=== PATIENT | female | born 1970 | race Two or more races ===

== ENCOUNTER 2021-06-27 08:16 | Emergency (ER) | payer SELFPAY ==
[~2021-06-27] VITALS: Ht 167.6 cm; Wt 104.3 kg
[2021-06-27 09:17] VITALS: BP 138/61
[2021-06-27 10:13] LABS: Urine Bacteria NONE SEEN /hpf (None Seen); Urine Blood Negative /uL (Negative); Urine Mucus FEW (None Seen); Urine Specific Gravity 1.018 (1.001-1.035); Urine WBC 26 /hpf (0 - 5)
[2021-06-27 10:15] LABS: Eosinophils # (auto) 0.3 10 ^3/uL (0-0.8); Monocytes # (auto) 0.5 10 ^3/uL (0-1.3); Red Blood Cells 4.65 10^6/uL (4.0-5.20)
[2021-06-27 10:18] LABS: Basophils # (auto) 0 10 ^3/uL (0-0.2); Basophils % (auto) 0.6 % (0.0-2.0); Eosinophils % (auto) 4.2 % (0.0-7.0); Hematocrit 37.7 % (36.0-46.0); Hemoglobin 12.1 g/dL (12.2-16.2); Lymphocytes # (auto) 1.6 10 ^3/uL (0.4-5.4); Lymphocytes % (auto) 20.4 % (10.0-50.0); Mean Corpuscular Volume 81.3 fL (80.0-100.0); Monocytes % (auto) 6.8 % (0.0-12.0); Neutrophils # (auto) 5.3 10 ^3/uL (1.6-8.6); Nucleated Red Blood Cells % 0.2 %; Red Cell Distribution Width 17.1 % (11.8-14.3); White Blood Cell 7.9 10^3/uL (4.4-10.8)
[2021-06-27 10:42] LABS: Albumin 3.8 g/dL (3.4-5.0); BUN/Creatinine Ratio 14.7; Calcium 9.4 mg/dL (8.5-10.1); Potassium 4.6 mmol/L (3.5-5.1)
[2021-06-27 10:44] LABS: Bilirubin, Total 0.4 mg/dL (0.2-1.0); Total Protein 8.1 g/dL (6.4-8.2)
[2021-06-27] MEDS ORDERED: NITR-87 PO (12:00)
== END 2021-06-27 12:14 | disposition home or self-care (01) ==
LOC: ER 08:16
DX: M79.662 Pain in left lower leg (principal); I10 Essential (primary) hypertension; R73.9 Hyperglycemia, unspecified
CPT/HCPCS: 36415; 70450; 80053; 81001; 83880; 84484; 85025; 93971

== ENCOUNTER 2021-07-18 15:05 | Inpatient (IN) | payer MEDICAID, OTHER ==
[~2021-07-18] VITALS: Ht 167.6 cm; Wt 126.6 kg
[~2021-07-18 15:05] MED LIST: NITR-87 PO
[2021-07-18 16:05] LABS: Basophils # (auto) 0 10 ^3/uL (0-0.2); Eosinophils # (auto) 0 10 ^3/uL (0-0.8); Lymphocytes # (auto) 0.9 10 ^3/uL (0.4-5.4); Lymphocytes % (auto) 16.9 % (10.0-50.0); Monocytes # (auto) 0.3 10 ^3/uL (0-1.3); Neutrophils # (auto) 4.1 10 ^3/uL (1.6-8.6); Nucleated Red Blood Cells % 0.1 %; White Blood Cell 5.3 10^3/uL (4.4-10.8)
[2021-07-18 16:07] LABS: Basophils % (auto) 0.5 % (0.0-2.0); Eosinophils % (auto) 0.1 % (0.0-7.0); Hematocrit 32.8 % (36.0-46.0); Hemoglobin 10.8 g/dL (12.2-16.2); Mean Corpuscular Hemoglobin 26.6 pg (28.0-32.0); Mean Corpuscular Hgb Conc. 32.9 g/dL (32.0-36.0); Mean Corpuscular Volume 80.7 fL (80.0-100.0); Monocytes % (auto) 4.9 % (0.0-12.0); Neutrophils % (auto) 77.6 % (37.0-80.0); Red Blood Cells 4.06 10^6/uL (4.0-5.20); Red Cell Distribution Width 17.1 % (11.8-14.3)
[2021-07-18 16:34] LABS: Albumin 2.8 g/dL (3.4-5.0); Potassium 3.5 mmol/L (3.5-5.1)
[2021-07-18 16:37] LABS: BUN/Creatinine Ratio 9.6; Bilirubin, Total 0.3 mg/dL (0.2-1.0); Total Protein 7.2 g/dL (6.4-8.2)
[2021-07-18] MEDS ORDERED: SODIUM CHLORIDE 0.9% 1,000 ML IVB ONE (16:45)
[2021-07-18] MEDS ORDERED: SODIUM CHLORIDE 0.9% 1,000 ML IV ONE (16:45)
[2021-07-18] MEDS ORDERED: IOHEXOL 350 MG/ML 100ML IJ ONE (17:30)
[2021-07-18] MEDS ORDERED: VANCOMYCIN 1GM/250ML 250 ML IV ONE (17:45)
[2021-07-18 18:38] LABS: INR 0.94 (0.9-1.15); Partial Thromboplastin Time 26.8 sec (23.6-33.0)
[2021-07-18] MEDS ORDERED: ACETAMINOPHEN 325 MG TAB PO ONE (20:30)
[2021-07-18] MEDS ORDERED: IPRATROPIUM BROM 0.5 MG/2.5ML INH SOL NEB ONE (21:15)
[2021-07-18] MEDS ORDERED: ALBUTEROL SULF 2.5 MG/0.5ML(0.5%) NEB SOLN NEB ONE (21:15)
[2021-07-18 21:22] LABS: Urine Bacteria FEW /hpf (None Seen); Urine Blood Negative /uL (Negative); Urine Mucus FEW (None Seen); Urine WBC 3 /hpf (0 - 5)
[2021-07-18 22:00] VITALS: BP 159/81
[2021-07-18] MEDS ORDERED: FAMOTIDINE (10MG/ML) 2ML VL IV SCH (22:00)
[2021-07-18] MEDS ORDERED: DEXTROSE (50%) 50ML SYRG IV PRN (22:00)
[2021-07-18] MEDS ORDERED: hydrALAZINE HCL 20 MG/ML VL IV PRN (22:00)
[2021-07-18] MEDS ORDERED: ACETAMINOPHEN 325 MG TAB PO PRN (22:00)
[2021-07-18] MEDS ORDERED: AZITHROMYCIN 500MG/ 250ML 250 ML IV ONE (22:00)
[2021-07-18] MEDS ORDERED: ONDANSETRON HCL 4 MG/2 ML VIAL IV PRN (22:00)
[2021-07-18] MEDS ORDERED: HEPARIN SODIUM (PORCINE) 5000 UNITS/ML 1ML VIAL SC SCH (22:00)
[2021-07-18 22:27] LABS: Urine Specific Gravity > 1.050 (1.001-1.035)
[2021-07-18] MEDS: SODIUM CHLOR 0.9% PF (SALINE LOCK) 10ML VIAL/SYR IV SCH (23:23)
[2021-07-18] MEDS: methylPREDNISolone SOD SUCC 40 MG/ML VL IV SCH (23:23)
[2021-07-18] MEDS: ASCORBIC ACID 500 MG TAB PO SCH (23:25)
[2021-07-18] MEDS ORDERED: NITROGLYCERIN 0.4 MG SL TAB SL PRN (23:30)
[2021-07-18] MEDS ORDERED: MORPHINE SULFATE INJ 2 MG/ml SYRG IV PRN (23:30)
[2021-07-19] MEDS: InsuLIN REG 1unit/0.01ml Soln (100units/ml) SC SCH ×5 (02:42→17:25)
[2021-07-19] MEDS: ACCU-CHEK COMFORT CURVE STRIP VI SCH ×5 (02:43→22:04)
[2021-07-19 04:05] VITALS: BP 129/70
[2021-07-19 05:00] VITALS: BP 125/52
[2021-07-19] MEDS ORDERED: HYDR-4798 PO (05:02)
[2021-07-19] MEDS ORDERED: MONT-8 OR (05:02)
[2021-07-19] MEDS ORDERED: GABA-339 PO (05:02)
[2021-07-19] MEDS ORDERED: OMEP20TA PO (05:02)
[2021-07-19] MEDS ORDERED: LOSA100T25 PO (05:02)
[2021-07-19] MEDS ORDERED: ISOS10TA2 PO (05:02)
[2021-07-19] MEDS ORDERED: CYCL-839 PO (05:02)
[2021-07-19] MEDS ORDERED: FLUT100I IN (05:02)
[2021-07-19] MEDS: ALBUTEROL SULF 2.5 MG/0.5ML(0.5%) NEB SOLN NEB PRN ×2 (05:36→19:55)
[2021-07-19] MEDS: IPRATROPIUM BROM 0.5 MG/2.5ML INH SOL NEB PRN ×2 (05:36→19:55)
[2021-07-19] MEDS: methylPREDNISolone SOD SUCC 40 MG/ML VL IV SCH ×3 (06:10→22:03)
[2021-07-19] MEDS: SODIUM CHLOR 0.9% PF (SALINE LOCK) 10ML VIAL/SYR IV SCH ×3 (06:11→22:03)
[2021-07-19 06:48] LABS: Basophils # (auto) 0 10 ^3/uL (0-0.2); Basophils % (auto) 0.4 % (0.0-2.0); Eosinophils # (auto) 0 10 ^3/uL (0-0.8); Hematocrit 29.8 % (36.0-46.0); Hemoglobin 10.2 g/dL (12.2-16.2); Lymphocytes # (auto) 0.5 10 ^3/uL (0.4-5.4); Lymphocytes % (auto) 13.3 % (10.0-50.0); Mean Corpuscular Hemoglobin 27.6 pg (28.0-32.0); Mean Corpuscular Hgb Conc. 34.4 g/dL (32.0-36.0); Mean Corpuscular Volume 80.3 fL (80.0-100.0); Monocytes # (auto) 0.1 10 ^3/uL (0-1.3); Monocytes % (auto) 2.7 % (0.0-12.0); Neutrophils # (auto) 3.2 10 ^3/uL (1.6-8.6); Neutrophils % (auto) 83.6 % (37.0-80.0); Nucleated Red Blood Cells % 0.1 %; Red Blood Cells 3.71 10^6/uL (4.0-5.20); Red Cell Distribution Width 17.3 % (11.8-14.3); White Blood Cell 3.8 10^3/uL (4.4-10.8)
[2021-07-19 07:03] LABS: Albumin 2.7 g/dL (3.4-5.0); BUN/Creatinine Ratio 6.9; Calcium 8.5 mg/dL (8.5-10.1); Potassium 3.7 mmol/L (3.5-5.1)
[2021-07-19 07:06] LABS: Bilirubin, Total 0.2 mg/dL (0.2-1.0); Total Protein 6.7 g/dL (6.4-8.2)
[2021-07-19] MEDS: FAMOTIDINE (10MG/ML) 2ML VL IV SCH ×2 (08:45→22:03)
[2021-07-19] MEDS: ASCORBIC ACID 500 MG TAB PO SCH ×2 (08:45→22:04)
[2021-07-19 08:50] VITALS: BP 135/71
[2021-07-19] MEDS: cefTRIAXone 1GM/50ML D5W 50 ML IV SCH (08:56)
[2021-07-19] MEDS: AZITHROMYCIN 500MG/ 250ML 250 ML IV SCH (10:00)
[2021-07-19] MEDS ORDERED: MULTIPLE VITAMIN TAB PO SCH (10:00)
[2021-07-19] MEDS ORDERED: ZINC SULFATE 220mg CAP or TAB PO SCH (10:00)
[2021-07-19] MEDS: HEPARIN SODIUM (PORCINE) 5000 UNITS/ML 1ML VIAL SC SCH ×2 (11:31→22:05)
[2021-07-19] MEDS ORDERED: DEXTROSE (50%) 50ML SYRG IV PRN (12:30)
[2021-07-19 12:50] VITALS: BP 131/72
[2021-07-19] MEDS ORDERED: ZOLPIDEM TARTRATE 5 MG TAB PO PRN (13:30)
[2021-07-19] MEDS ORDERED: VANCOMYCIN PER PHARMACY 0 MG IV SCH (16:30)
[2021-07-19 17:12] VITALS: BP 115/59
[2021-07-19] MEDS: VANCOMYCIN 1GM/250ML 250 ML IV SCH (20:19)
[2021-07-19 22:00] VITALS: BP 137/87
[2021-07-19] MEDS ORDERED: InsuLIN REG 1unit/0.01ml Soln (100units/ml) SC SCH (22:00)
[2021-07-20] MEDS ORDERED: guaiFENesin-DM 100/10mg/5ml SYR PO PRN ×2 (02:12→02:24)
[2021-07-20] MEDS: VANCOMYCIN 1GM/250ML 250 ML IV SCH (03:49)
[2021-07-20 04:37] VITALS: BP 130/88
[2021-07-20] MEDS: ACCU-CHEK COMFORT CURVE STRIP VI SCH ×4 (05:55→21:33)
[2021-07-20] MEDS: methylPREDNISolone SOD SUCC 40 MG/ML VL IV SCH (05:55)
[2021-07-20] MEDS: SODIUM CHLOR 0.9% PF (SALINE LOCK) 10ML VIAL/SYR IV SCH ×3 (05:55→22:00)
[2021-07-20] MEDS: InsuLIN REG 1unit/0.01ml Soln (100units/ml) SC SCH ×4 (05:56→21:33)
[2021-07-20] MEDS ORDERED: DEXTROSE (50%) 50ML SYRG IV PRN (09:00)
[2021-07-20 09:06] VITALS: BP 144/84
[2021-07-20] MEDS: FAMOTIDINE (10MG/ML) 2ML VL IV SCH ×2 (09:30→21:26)
[2021-07-20] MEDS: cefTRIAXone 1GM/50ML D5W 50 ML IV SCH (09:30)
[2021-07-20] MEDS: HEPARIN SODIUM (PORCINE) 5000 UNITS/ML 1ML VIAL SC SCH ×2 (09:46→21:33)
[2021-07-20] MEDS: AZITHROMYCIN 500MG/ 250ML 250 ML IV SCH (10:30)
[2021-07-20 13:14] VITALS: BP 142/79
[2021-07-20 17:25] VITALS: BP 124/76
[2021-07-20] MEDS: ALBUTEROL SULF 2.5 MG/0.5ML(0.5%) NEB SOLN NEB PRN (17:37)
[2021-07-20] MEDS: IPRATROPIUM BROM 0.5 MG/2.5ML INH SOL NEB PRN (17:37)
[2021-07-20] MEDS: FUROSEMIDE 40 MG/4 ML VIAL IV SCH (17:41)
[2021-07-20] MEDS: guaiFENesin-DM 100/10mg/5ml SYR PO PRN (18:00)
[2021-07-20] MEDS ORDERED: TEMAZEPAM 15 MG CAP PO ONE ×2 (18:00→19:15)
[2021-07-20] MEDS: HYDROcodone-ACET 5/325MG TAB PO PRN (18:00)
[2021-07-20] MEDS: TEMAZEPAM 15 MG CAP PO PRN (21:26)
[2021-07-20 21:39] VITALS: BP 111/71
[2021-07-21] MEDS: HYDROcodone-ACET 5/325MG TAB PO PRN ×2 (04:30→16:43)
[2021-07-21 04:42] VITALS: BP 126/85
[2021-07-21] MEDS: SODIUM CHLOR 0.9% PF (SALINE LOCK) 10ML VIAL/SYR IV SCH ×3 (06:17→21:38)
[2021-07-21] MEDS: InsuLIN REG 1unit/0.01ml Soln (100units/ml) SC SCH ×4 (06:21→21:46)
[2021-07-21] MEDS: FUROSEMIDE 40 MG/4 ML VIAL IV SCH ×2 (06:31→17:51)
[2021-07-21] MEDS: ACCU-CHEK COMFORT CURVE STRIP VI SCH ×4 (06:32→21:38)
[2021-07-21] MEDS: guaiFENesin-DM 100/10mg/5ml SYR PO PRN (06:35)
[2021-07-21 08:00] VITALS: BP 120/81
[2021-07-21 09:00] VITALS: BP 120/81
[2021-07-21] MEDS: cefTRIAXone 1GM/50ML D5W 50 ML IV SCH (10:00)
[2021-07-21] MEDS: FAMOTIDINE (10MG/ML) 2ML VL IV SCH ×2 (10:16→21:37)
[2021-07-21] MEDS: HEPARIN SODIUM (PORCINE) 5000 UNITS/ML 1ML VIAL SC SCH ×2 (10:22→21:45)
[2021-07-21] MEDS: AZITHROMYCIN 500MG/ 250ML 250 ML IV SCH (11:04)
[2021-07-21 13:02] VITALS: BP 120/79
[2021-07-21] MEDS: DOCUSATE SOD 100 MG CAP PO PRN (16:43)
[2021-07-21 17:00] VITALS: BP 125/74
[2021-07-21] MEDS: ALBUTEROL SULF 2.5 MG/0.5ML(0.5%) NEB SOLN NEB PRN (18:27)
[2021-07-21] MEDS: IPRATROPIUM BROM 0.5 MG/2.5ML INH SOL NEB PRN (18:27)
[2021-07-21] MEDS: TEMAZEPAM 15 MG CAP PO PRN (21:38)
[2021-07-21 22:00] VITALS: BP 97/48
[2021-07-22 04:22] VITALS: BP 140/78
[2021-07-22 05:00] VITALS: BP 104/52
[2021-07-22] MEDS: SODIUM CHLOR 0.9% PF (SALINE LOCK) 10ML VIAL/SYR IV SCH (06:15)
[2021-07-22] MEDS: InsuLIN REG 1unit/0.01ml Soln (100units/ml) SC SCH (06:27)
[2021-07-22] MEDS: HYDROcodone-ACET 5/325MG TAB PO PRN (06:28)
[2021-07-22] MEDS: FUROSEMIDE 40 MG/4 ML VIAL IV SCH (06:28)
[2021-07-22] MEDS: ACCU-CHEK COMFORT CURVE STRIP VI SCH (06:28)
[2021-07-22] MEDS: DOCUSATE SOD 100 MG CAP PO PRN (06:29)
[2021-07-22 08:00] VITALS: BP 109/74
[2021-07-22] MEDS ORDERED: ALBUAER3 IN (08:09)
[2021-07-22] MEDS ORDERED: AZIT500T66 PO (08:09)
[2021-07-22] MEDS ORDERED: METF-372 PO (08:09)
[2021-07-22 09:38] VITALS: BP_SYST 109; BP_SYST 111; BP_DIAS 68; BP_DIAS 74
[2021-07-22] MEDS ORDERED: HEPARIN SODIUM (PORCINE) 5000 UNITS/ML 1ML VIAL ONE (09:43)
[2021-07-22] MEDS: FAMOTIDINE (10MG/ML) 2ML VL IV SCH (10:12)
[2021-07-22] MEDS: HEPARIN SODIUM (PORCINE) 5000 UNITS/ML 1ML VIAL SC SCH (10:12)
[2021-07-22] MEDS: cefTRIAXone 1GM/50ML D5W 50 ML IV SCH (10:13)
== END 2021-07-22 12:35 | disposition home or self-care (01) | DRG 139 ==
LOC: ER 15:05 → TELE 23:28 → CENTRAL 07-19 00:01 → TELE-CENTR 07-19 06:59
PROVIDERS: ADMIT Nurse Practitioner Family; ATTEND Family Medicine
DX: J18.9 Pneumonia, unspecified organism (principal); J96.01 Acute respiratory failure with hypoxia; I12.9 Hypertensive chronic kidney disease with stage 1 through stage 4 chronic kidney disease, or unspecified chronic kidney disease; E11.22 Type 2 diabetes mellitus with diabetic chronic kidney disease; R79.89 Other specified abnormal findings of blood chemistry; N18.9 Chronic kidney disease, unspecified; Z20.822 Contact with and (suspected) exposure to COVID-19; Z82.5 Family history of asthma and other chronic lower respiratory diseases; Z86.711 Personal history of pulmonary embolism; Z90.49 Acquired absence of other specified parts of digestive tract; Z91.14 Patient's other noncompliance with medication regimen
CPT/HCPCS: 36415; 36600; 71045; 71275; 80053; 81001; 82565; 82805; 82962; 83036; 83605; 83735; 83880; 84443; 84484; 85025; 85379; 85610; 85730; 87040; 87077; 87186; 93005; 93306; 93970; 94640; 96361; 96365; 99291; G0378; J0696; J1815; J3490

== ENCOUNTER 2022-07-03 06:11 | Inpatient (IN) | payer MEDICAID ==
[~2022-07-03] VITALS: Ht 165.1 cm; Wt 107.5 kg
[~2022-07-03 06:11] MED LIST changes: +ALBUAER3 IN; +AZIT500T66 PO; +CYCL-839 PO; +FLUT100I IN; +GABA-339 PO; +HYDR-4798 PO; +ISOS10TA2 PO; +LOSA100T25 PO; +METF-372 PO; +MONT-8 OR; -NITR-87 PO; +OMEP20TA PO
[2022-07-03 07:00] LABS: Basophils # (auto) 0.1 10 ^3/uL (0-0.2); Basophils % (auto) 1.4 % (0.0-2.0); Eosinophils # (auto) 0.4 10 ^3/uL (0-0.8); Eosinophils % (auto) 5.4 % (0.0-7.0); Hematocrit 41.9 % (36.0-46.0); Hemoglobin 14.3 g/dL (12.2-16.2); Lymphocytes % (auto) 27.8 % (10.0-50.0); Mean Corpuscular Hgb Conc. 34.1 g/dL (32.0-36.0); Mean Corpuscular Volume 93.8 fL (80.0-100.0); Monocytes # (auto) 0.6 10 ^3/uL (0-1.3); Monocytes % (auto) 8.2 % (0.0-12.0); Neutrophils # (auto) 4.1 10 ^3/uL (1.6-8.6); Neutrophils % (auto) 57.2 % (37.0-80.0); Nucleated Red Blood Cells % 0.1 %; Red Blood Cells 4.47 10^6/uL (4.0-5.20); Red Cell Distribution Width 14.8 % (11.8-14.3); White Blood Cell 7.2 10^3/uL (4.4-10.8)
[2022-07-03 07:19] LABS: Albumin 3.8 g/dL (3.4-5.0); Calcium 9.5 mg/dL (8.5-10.1); Potassium 4.3 mmol/L (3.5-5.1)
[2022-07-03 07:22] LABS: BUN/Creatinine Ratio 18.1 (10.0-20.0); CRP High Sensitivity 0.47 mg/dL (< 0.3); Total Protein 7.2 g/dL (6.4-8.2)
[2022-07-03] MEDS ORDERED: IOHEXOL 350 MG/ML 100ML IJ ONE (09:10)
[2022-07-03] MEDS ORDERED: ENOXAPARIN SOD 120 MG/0.8 ML SYRINGE SC ONE (09:45)
[2022-07-03] MEDS ORDERED: SODIUM CHLORIDE 0.9% 1,000 ML IV ONE (10:00)
[2022-07-03] MEDS: SODIUM CHLORIDE 0.9% 1,000 ML IV SCH (10:45)
[2022-07-03] MEDS ORDERED: ALBUTEROL SULF 2.5 MG/0.5ML(0.5%) NEB SOLN NEB PRN (10:45)
[2022-07-03] MEDS ORDERED: DEXTROSE (50%) 50ML SYRG IV PRN (10:45)
[2022-07-03] MEDS ORDERED: NITROGLYCERIN 0.4 MG SL TAB SL PRN (11:00)
[2022-07-03] MEDS ORDERED: MORPHINE SULFATE INJ 2 MG/ml SYRG IV PRN (11:00)
[2022-07-03] MEDS: ACCU-CHEK COMFORT CURVE STRIP VI SCH ×3 (11:30→21:35)
[2022-07-03] MEDS: InsuLIN REG 1unit/0.01ml Soln (100units/ml) SC SCH ×3 (11:30→21:41)
[2022-07-03 13:00] LABS: Cholesterol 233 mg/dL (< 200)
[2022-07-03 13:03] LABS: HDL Cholesterol 58 mg/dL (40-59); LDL Cholesterol 150 mg/dL (< 100); Triglycerides 105 mg/dL (< 150)
[2022-07-03 16:15] VITALS: BP 137/80
[2022-07-03 17:15] VITALS: BP 133/82
[2022-07-03] MEDS ORDERED: MONTELUKAST SODIUM 10 MG TAB PO SCH (18:00)
[2022-07-03] MEDS ORDERED: BUPR150T8 PO (18:28)
[2022-07-03 20:00] VITALS: BP 127/64
[2022-07-03] MEDS: ISOSORBIDE DINITRATE 10 MG TAB PO SCH (21:34)
[2022-07-03] MEDS: ACETAMINOPHEN 325 MG TAB PO PRN (21:34)
[2022-07-03] MEDS: ENOXAPARIN SOD 120 MG/0.8 ML SYRINGE SC SCH (21:35)
[2022-07-03 22:00] VITALS: BP 127/64
[2022-07-04 05:00] VITALS: BP 109/71
[2022-07-04] MEDS: ACCU-CHEK COMFORT CURVE STRIP VI SCH ×4 (06:37→21:53)
[2022-07-04 06:38] LABS: Basophils # (auto) 0.1 10 ^3/uL (0-0.2); Basophils % (auto) 1.4 % (0.0-2.0); Eosinophils # (auto) 0.3 10 ^3/uL (0-0.8); Eosinophils % (auto) 6.2 % (0.0-7.0); Hematocrit 39.1 % (36.0-46.0); Hemoglobin 13.1 g/dL (12.2-16.2); Lymphocytes # (auto) 1.7 10 ^3/uL (0.4-5.4); Lymphocytes % (auto) 31.6 % (10.0-50.0); Mean Corpuscular Hemoglobin 31.9 pg (28.0-32.0); Mean Corpuscular Hgb Conc. 33.4 g/dL (32.0-36.0); Mean Corpuscular Volume 95.3 fL (80.0-100.0); Monocytes # (auto) 0.5 10 ^3/uL (0-1.3); Monocytes % (auto) 9.3 % (0.0-12.0); Neutrophils # (auto) 2.8 10 ^3/uL (1.6-8.6); Neutrophils % (auto) 51.5 % (37.0-80.0); Nucleated Red Blood Cells % 0.2 %; Red Cell Distribution Width 14.7 % (11.8-14.3); White Blood Cell 5.5 10^3/uL (4.4-10.8)
[2022-07-04] MEDS: InsuLIN REG 1unit/0.01ml Soln (100units/ml) SC SCH ×4 (06:39→22:03)
[2022-07-04 06:49] LABS: Potassium 3.9 mmol/L (3.5-5.1)
[2022-07-04 06:57] LABS: Albumin 3.3 g/dL (3.4-5.0); BUN/Creatinine Ratio 17.6 (10.0-20.0); Bilirubin, Total 0.7 mg/dL (0.2-1.0); Calcium 8.8 mg/dL (8.5-10.1); Total Protein 6.6 g/dL (6.4-8.2)
[2022-07-04] MEDS: ACETAMINOPHEN 325 MG TAB PO PRN (07:52)
[2022-07-04] MEDS: SODIUM CHLORIDE 0.9% 1,000 ML IV SCH (07:53)
[2022-07-04 08:59] VITALS: BP 122/86
[2022-07-04] MEDS: ENOXAPARIN SOD 120 MG/0.8 ML SYRINGE SC SCH ×2 (09:45→21:53)
[2022-07-04] MEDS: ISOSORBIDE DINITRATE 10 MG TAB PO SCH (09:47)
[2022-07-04] MEDS: PANTOPRAZOLE 40 MG TAB PO SCH (09:48)
[2022-07-04] MEDS ORDERED: LOSARTAN POTASSIUM PO SCH (10:00)
[2022-07-04] MEDS ORDERED: GABAPENTIN 300 MG CAP PO SCH (10:00)
[2022-07-04] MEDS ORDERED: HYDROCHLO PO SCH (10:00)
[2022-07-04 12:50] VITALS: BP 147/83
[2022-07-04 13:31] LABS: Partial Thromboplastin Time 28.6 sec (24.6-33.4)
[2022-07-04] MEDS: HYDROcodone-ACET 5/325MG TAB PO PRN ×2 (13:31→20:07)
[2022-07-04 17:00] VITALS: BP 120/71
[2022-07-04] MEDS ORDERED: WARFARIN SODIUM 10 MG TAB PO ONE (17:00)
[2022-07-04 20:00] VITALS: BP 130/80
[2022-07-04] MEDS ORDERED: APIXABAN 5 MG TAB PO SCH (22:00)
[2022-07-04 22:50] VITALS: BP 130/80
[2022-07-05 04:42] VITALS: BP 115/65
[2022-07-05] MEDS: HYDROcodone-ACET 5/325MG TAB PO PRN ×2 (06:19→13:00)
[2022-07-05] MEDS: ACCU-CHEK COMFORT CURVE STRIP VI SCH ×4 (06:20→21:11)
[2022-07-05] MEDS: InsuLIN REG 1unit/0.01ml Soln (100units/ml) SC SCH ×4 (06:23→21:43)
[2022-07-05 07:46] LABS: INR 0.99 (0.9-1.15); Partial Thromboplastin Time 29.3 sec (24.6-33.4)
[2022-07-05 09:06] VITALS: BP 115/77
[2022-07-05] MEDS: PANTOPRAZOLE 40 MG TAB PO SCH (09:47)
[2022-07-05] MEDS: ACETAMINOPHEN 325 MG TAB PO PRN (09:47)
[2022-07-05] MEDS: ENOXAPARIN SOD 120 MG/0.8 ML SYRINGE SC SCH ×2 (11:45→21:37)
[2022-07-05 12:53] VITALS: BP 137/91
[2022-07-05] MEDS ORDERED: WARFARIN SODIUM 10 MG TAB PO ONE (17:00)
[2022-07-05 17:47] VITALS: BP 120/84
[2022-07-05] MEDS: SUMAtriptan SUCCINATE 25 MG TAB PO PRN (18:47)
[2022-07-05 20:00] VITALS: BP 120/72
[2022-07-05 22:00] VITALS: BP 120/72
[2022-07-06 05:00] VITALS: BP 120/71
[2022-07-06] MEDS: ACCU-CHEK COMFORT CURVE STRIP VI SCH ×3 (06:00→17:10)
[2022-07-06 06:25] LABS: INR 1.03 (0.9-1.15); Partial Thromboplastin Time 29.5 sec (24.6-33.4)
[2022-07-06] MEDS: InsuLIN REG 1unit/0.01ml Soln (100units/ml) SC SCH ×3 (06:32→17:30)
[2022-07-06] MEDS: HYDROcodone-ACET 5/325MG TAB PO PRN (06:39)
[2022-07-06 08:00] VITALS: BP 129/91
[2022-07-06 08:51] VITALS: BP 129/91
[2022-07-06] MEDS: PANTOPRAZOLE 40 MG TAB PO SCH (09:59)
[2022-07-06] MEDS: ENOXAPARIN SOD 120 MG/0.8 ML SYRINGE SC SCH (09:59)
[2022-07-06] MEDS ORDERED: WARF7.5T20 PO (12:16)
[2022-07-06] MEDS ORDERED: ENO120SY SC (12:16)
[2022-07-06] MEDS ORDERED: LANC-347 XX (12:16)
[2022-07-06] MEDS: SUMAtriptan SUCCINATE 25 MG TAB PO PRN (12:30)
[2022-07-06 12:51] VITALS: BP 121/56
[2022-07-06] MEDS ORDERED: GLUC-149 VI (13:26)
[2022-07-06 13:39] VITALS: BP 120/71
[2022-07-06] MEDS ORDERED: WARFARIN SODIUM 10 MG TAB PO ONE (17:00)
[2022-07-06 17:21] VITALS: BP 154/89
[2022-07-11] MEDS ORDERED: APIXABAN 5 MG TAB PO SCH (22:00)
== END 2022-07-06 18:13 | disposition home or self-care (01) | DRG 197 ==
LOC: ER 06:11 → UNDOADMIN 10:43 → TELE 10:43 → OVERFLOW 10:43 → TELE-WESTW 17:01
PROVIDERS: ADMIT Nurse Practitioner Family; ATTEND Internal Medicine
DX: I82.4Z1 Acute embolism and thrombosis of unspecified deep veins of right distal lower extremity (principal); I26.99 Other pulmonary embolism without acute cor pulmonale; D68.61 Antiphospholipid syndrome; E11.65 Type 2 diabetes mellitus with hyperglycemia; E66.01 Morbid (severe) obesity due to excess calories; F41.9 Anxiety disorder, unspecified; Z79.01 Long term (current) use of anticoagulants; Z91.199 Patient's noncompliance with other medical treatment and regimen due to unspecified reason; Z82.5 Family history of asthma and other chronic lower respiratory diseases; Z90.49 Acquired absence of other specified parts of digestive tract; Z68.39 Body mass index [BMI] 39.0-39.9, adult
CPT/HCPCS: 36415; 71045; 71275; 80053; 80061; 82962; 83036; 83880; 84443; 84484; 85025; 85610; 85730; 86141; 93005; 93970; 96360; 96372; G0378; J1815

== ENCOUNTER 2022-07-29 15:49 | Inpatient (IN) | payer MEDICAID ==
[~2022-07-29] VITALS: Ht 165.1 cm; Wt 110.9 kg
[~2022-07-29 15:49] MED LIST changes: -AZIT500T66 PO; +BUPR150T8 PO; -CYCL-839 PO; +ENO120SY SC; -FLUT100I IN; -GABA-339 PO; +GLUC-149 VI; -HYDR-4798 PO; -ISOS10TA2 PO; +LANC-347 XX; -LOSA100T25 PO; -MONT-8 OR; -OMEP20TA PO; +WARF-114 PO
[2022-07-29 16:12] LABS: Basophils # (auto) 0.1 10 ^3/uL (0-0.2); Basophils % (auto) 0.9 % (0.0-2.0); Eosinophils # (auto) 0.1 10 ^3/uL (0-0.8); Eosinophils % (auto) 1.6 % (0.0-7.0); Hematocrit 41.3 % (36.0-46.0); Hemoglobin 14.2 g/dL (12.2-16.2); Lymphocytes # (auto) 1.7 10 ^3/uL (0.4-5.4); Lymphocytes % (auto) 23.7 % (10.0-50.0); Mean Corpuscular Hemoglobin 32.3 pg (28.0-32.0); Mean Corpuscular Hgb Conc. 34.4 g/dL (32.0-36.0); Mean Corpuscular Volume 93.9 fL (80.0-100.0); Monocytes # (auto) 0.4 10 ^3/uL (0-1.3); Monocytes % (auto) 5.9 % (0.0-12.0); Neutrophils # (auto) 4.9 10 ^3/uL (1.6-8.6); Neutrophils % (auto) 67.9 % (37.0-80.0); Nucleated Red Blood Cells % 0.1 %; Red Blood Cells 4.39 10^6/uL (4.0-5.20); Red Cell Distribution Width 15.2 % (11.8-14.3); White Blood Cell 7.2 10^3/uL (4.4-10.8)
[2022-07-29 17:19] LABS: Albumin 4.2 g/dL (3.4-5.0); Calcium 9.3 mg/dL (8.5-10.1); Potassium 3.7 mmol/L (3.5-5.1)
[2022-07-29 17:25] LABS: BUN/Creatinine Ratio 17.5 (10.0-20.0); Bilirubin, Total 0.3 mg/dL (0.2-1.0); Total Protein 7.5 g/dL (6.4-8.2)
[2022-07-29 17:59] LABS: INR 2.91 (0.9-1.15); Partial Thromboplastin Time 38.1 sec (24.6-33.4)
[2022-07-29] MEDS ORDERED: IOHEXOL 350 MG/ML 100ML IJ ONE (20:07)
[2022-07-29] MEDS ORDERED: ENOXAPARIN SOD 120 MG/0.8 ML SYRINGE SC ONE (21:15)
[2022-07-29] MEDS ORDERED: DEXTROSE (50%) 50ML SYRG IV PRN (22:15)
[2022-07-29] MEDS ORDERED: MORPHINE SULFATE INJ 2 MG/ml SYRG IV PRN (22:15)
[2022-07-29] MEDS ORDERED: NITROGLYCERIN 0.4 MG SL TAB SL PRN (22:15)
[2022-07-29] MEDS ORDERED: ACETAMINOPHEN 325 MG TAB PO PRN (22:15)
[2022-07-29] MEDS ORDERED: WARFARIN SODIUM 2.5 MG TAB PO SCH (22:45)
[2022-07-30] MEDS: HYDROcodone-ACET 5/325MG TAB PO PRN ×2 (02:30→14:45)
[2022-07-30 06:02] LABS: Basophils # (auto) 0.1 10 ^3/uL (0-0.2); Basophils % (auto) 0.9 % (0.0-2.0); Eosinophils # (auto) 0.3 10 ^3/uL (0-0.8); Eosinophils % (auto) 3.8 % (0.0-7.0); Hematocrit 38.3 % (36.0-46.0); Hemoglobin 12.8 g/dL (12.2-16.2); Lymphocytes # (auto) 2.5 10 ^3/uL (0.4-5.4); Lymphocytes % (auto) 33.1 % (10.0-50.0); Mean Corpuscular Hemoglobin 31.5 pg (28.0-32.0); Mean Corpuscular Hgb Conc. 33.4 g/dL (32.0-36.0); Mean Corpuscular Volume 94.3 fL (80.0-100.0); Monocytes # (auto) 0.7 10 ^3/uL (0-1.3); Monocytes % (auto) 8.8 % (0.0-12.0); Neutrophils % (auto) 53.4 % (37.0-80.0); Nucleated Red Blood Cells % 0.1 %; Red Blood Cells 4.06 10^6/uL (4.0-5.20); Red Cell Distribution Width 15.5 % (11.8-14.3); White Blood Cell 7.5 10^3/uL (4.4-10.8)
[2022-07-30 06:08] LABS: Albumin 3.5 g/dL (3.4-5.0); Calcium 8.6 mg/dL (8.5-10.1); Potassium 3.8 mmol/L (3.5-5.1)
[2022-07-30 06:12] LABS: Bilirubin, Total 0.4 mg/dL (0.2-1.0); Total Protein 6.7 g/dL (6.4-8.2)
[2022-07-30] MEDS: InsuLIN REG 1unit/0.01ml Soln (100units/ml) SC SCH ×4 (06:15→21:26)
[2022-07-30] MEDS: buPROPion HCL 75 MG TAB PO SCH ×2 (06:16→18:58)
[2022-07-30] MEDS: ACCU-CHEK COMFORT CURVE STRIP VI SCH ×4 (06:20→21:24)
[2022-07-30 06:34] LABS: INR 2.74 (0.9-1.15)
[2022-07-30] MEDS: PANTOPRAZOLE 40 MG TAB PO SCH (10:03)
[2022-07-30 13:00] VITALS: BP 141/78
[2022-07-30] MEDS ORDERED: BUPR150T8 PO (16:03)
[2022-07-30] MEDS ORDERED: WARF-66 PO (16:06)
[2022-07-30] MEDS ORDERED: WARF-113 PO (16:10)
[2022-07-30 16:41] VITALS: BP 110/68
[2022-07-30] MEDS ORDERED: WARFARIN SODIUM 5 MG TAB PO ONE (17:00)
[2022-07-30 22:00] VITALS: BP 114/85
[2022-07-31] MEDS: HYDROcodone-ACET 5/325MG TAB PO PRN ×2 (04:00→18:11)
[2022-07-31 05:00] VITALS: BP 114/73
[2022-07-31] MEDS: buPROPion HCL 75 MG TAB PO SCH ×2 (06:03→18:11)
[2022-07-31] MEDS: ACCU-CHEK COMFORT CURVE STRIP VI SCH ×4 (06:04→21:55)
[2022-07-31] MEDS: InsuLIN REG 1unit/0.01ml Soln (100units/ml) SC SCH ×4 (06:07→21:57)
[2022-07-31 06:14] LABS: INR 1.81 (0.9-1.15); Partial Thromboplastin Time 32.6 sec (24.6-33.4)
[2022-07-31 08:05] VITALS: BP 123/81
[2022-07-31 09:00] VITALS: BP 123/81
[2022-07-31] MEDS: PANTOPRAZOLE 40 MG TAB PO SCH (10:09)
[2022-07-31 17:00] VITALS: BP 131/94
[2022-07-31] MEDS ORDERED: WARFARIN SODIUM 5 MG TAB PO ONE (17:00)
[2022-07-31 22:00] VITALS: BP 131/77
[2022-08-01] MEDS: HYDROcodone-ACET 5/325MG TAB PO PRN ×2 (04:17→16:31)
[2022-08-01 05:00] VITALS: BP 109/72
[2022-08-01 05:33] LABS: INR 1.37 (0.9-1.15); Partial Thromboplastin Time 29.7 sec (24.6-33.4)
[2022-08-01] MEDS: buPROPion HCL 75 MG TAB PO SCH ×2 (06:13→18:41)
[2022-08-01] MEDS: ACCU-CHEK COMFORT CURVE STRIP VI SCH ×4 (06:14→22:05)
[2022-08-01] MEDS: InsuLIN REG 1unit/0.01ml Soln (100units/ml) SC SCH ×4 (06:17→22:06)
[2022-08-01 09:06] VITALS: BP 101/50
[2022-08-01] MEDS: PANTOPRAZOLE 40 MG TAB PO SCH (09:52)
[2022-08-01 13:03] VITALS: BP 135/84
[2022-08-01] MEDS ORDERED: WARFARIN SODIUM 10 MG TAB PO ONE (17:00)
[2022-08-01 17:05] VITALS: BP 129/65
[2022-08-01 22:00] VITALS: BP 116/77
[2022-08-02 05:00] VITALS: BP 114/63
[2022-08-02] MEDS: HYDROcodone-ACET 5/325MG TAB PO PRN (05:08)
[2022-08-02 05:41] LABS: INR 1.17 (0.9-1.15); Partial Thromboplastin Time 28.7 sec (24.6-33.4)
[2022-08-02] MEDS: ACCU-CHEK COMFORT CURVE STRIP VI SCH ×2 (06:41→11:25)
[2022-08-02] MEDS: buPROPion HCL 75 MG TAB PO SCH (06:41)
[2022-08-02] MEDS: InsuLIN REG 1unit/0.01ml Soln (100units/ml) SC SCH ×2 (06:42→11:22)
[2022-08-02 08:00] VITALS: BP 131/74
[2022-08-02] MEDS: PANTOPRAZOLE 40 MG TAB PO SCH (10:21)
[2022-08-02] MEDS ORDERED: ENO120SY SC (11:30)
[2022-08-02 12:00] VITALS: BP 110/80
[2022-08-02] MEDS ORDERED: WARFARIN SODIUM 10 MG TAB PO ONE (17:00)
== END 2022-08-02 16:17 | disposition home or self-care (01) | DRG 197 ==
LOC: ER 15:49 → TELE 22:09 → TELE-EAST 07-30 14:15
PROVIDERS: ADMIT Nurse Practitioner; ATTEND Internal Medicine
DX: I82.411 Acute embolism and thrombosis of right femoral vein (principal); I26.99 Other pulmonary embolism without acute cor pulmonale; D68.9 Coagulation defect, unspecified; E11.22 Type 2 diabetes mellitus with diabetic chronic kidney disease; N18.30 Chronic kidney disease, stage 3 unspecified; E66.01 Morbid (severe) obesity due to excess calories; Z82.5 Family history of asthma and other chronic lower respiratory diseases; Z86.711 Personal history of pulmonary embolism; Z86.718 Personal history of other venous thrombosis and embolism; Z68.41 Body mass index [BMI] 40.0-44.9, adult; Z90.49 Acquired absence of other specified parts of digestive tract
CPT/HCPCS: 36415; 71275; 80053; 81025; 82962; 83880; 84484; 85025; 85610; 85730; 93005; 93306; 93970; 96372; 96374; G0378; J1815

== ENCOUNTER → 2022-08-28 | Outpatient (CLI) | payer MEDICAID ==
[~2022-08-28] MED LIST changes: -METF-372 PO; +WARF-113 PO; -WARF-114 PO; +WARF-66 PO
[2022-08-28 09:46] LABS: INR 3.67 (0.9-1.15)
== END | disposition home or self-care (01) ==
LOC: LAB 09:19
PROVIDERS: ATTEND Physician Assistant
DX: I26.99 Other pulmonary embolism without acute cor pulmonale (principal); D68.69 Other thrombophilia; E24.0 Pituitary-dependent Cushing's disease; D68.61 Antiphospholipid syndrome
CPT/HCPCS: 36415; 85610

== ENCOUNTER → 2022-09-04 | Outpatient (CLI) | payer MEDICAID ==
[2022-09-04 10:37] LABS: Basophils # (auto) 0.1 10 ^3/uL (0-0.2); Basophils % (auto) 1.2 % (0.0-2.0); Eosinophils # (auto) 0.2 10 ^3/uL (0-0.8); Eosinophils % (auto) 4.4 % (0.0-7.0); Hematocrit 42.4 % (36.0-46.0); Hemoglobin 14.1 g/dL (12.2-16.2); Lymphocytes # (auto) 1.7 10 ^3/uL (0.4-5.4); Lymphocytes % (auto) 32.2 % (10.0-50.0); Mean Corpuscular Hemoglobin 32.1 pg (28.0-32.0); Mean Corpuscular Hgb Conc. 33.4 g/dL (32.0-36.0); Mean Corpuscular Volume 96.2 fL (80.0-100.0); Monocytes # (auto) 0.5 10 ^3/uL (0-1.3); Monocytes % (auto) 9.4 % (0.0-12.0); Neutrophils # (auto) 2.8 10 ^3/uL (1.6-8.6); Neutrophils % (auto) 52.8 % (37.0-80.0); Red Cell Distribution Width 15.1 % (11.8-14.3); White Blood Cell 5.3 10^3/uL (4.4-10.8)
[2022-09-04 10:54] LABS: INR 1.94 (0.9-1.15)
[2022-09-04 11:12] LABS: Urine Bacteria NONE SEEN /hpf (None Seen); Urine Blood Negative /uL (Negative); Urine Mucus FEW (None Seen); Urine Specific Gravity 1.026 (1.001-1.035); Urine WBC 10 /hpf (0 - 5)
[2022-09-04 11:29] LABS: Albumin 3.9 g/dL (3.4-5.0); Calcium 8.9 mg/dL (8.5-10.1); Potassium 4.4 mmol/L (3.5-5.1)
[2022-09-04 11:35] LABS: Bilirubin, Total 0.5 mg/dL (0.2-1.0); Total Protein 7.6 g/dL (6.4-8.2)
== END | disposition home or self-care (01) ==
LOC: LAB 10:18
PROVIDERS: ATTEND Internal Medicine
DX: Z12.11 Encounter for screening for malignant neoplasm of colon (principal); Z00.00 Encounter for general adult medical examination without abnormal findings; I26.99 Other pulmonary embolism without acute cor pulmonale; I82.409 Acute embolism and thrombosis of unspecified deep veins of unspecified lower extremity; E11.9 Type 2 diabetes mellitus without complications; D68.69 Other thrombophilia; D68.61 Antiphospholipid syndrome
CPT/HCPCS: 36415; 80053; 80061; 81001; 83036; 84443; 85025; 85610

== ENCOUNTER → 2022-10-07 | Outpatient (CLI) | payer MEDICAID ==
[2022-10-07 11:17] LABS: Albumin 3.9 g/dL (3.4-5.0); Bilirubin, Direct 0.2 mg/dL (0-0.2); Bilirubin, Total 0.5 mg/dL (0.2-1.0); Total Protein 8.1 g/dL (6.4-8.2)
== END | disposition home or self-care (01) ==
LOC: LAB 10:21
PROVIDERS: ATTEND Internal Medicine
DX: E11.9 Type 2 diabetes mellitus without complications (principal); R79.89 Other specified abnormal findings of blood chemistry
CPT/HCPCS: 36415; 80076

== ENCOUNTER → 2022-10-30 | Outpatient (CLI) | payer MEDICAID ==
[2022-10-30 08:19] LABS: Alanine Aminotransferase 33 U/L (7-40); Albumin 4.8 g/dL (3.2-4.8); Alkaline Phosphatase 94 U/L (46-116); Anion Gap 9.3 (5-15); Aspartate Aminotransferase 25 U/L (13-40); BUN/Creatinine Ratio 17.4 (10.0-20.0); Bilirubin, Total 0.8 mg/dL (0.2-1.0); Blood Urea Nitrogen 15 mg/dL (9-23); Calcium 9.9 mg/dL (8.5-10.1); Carbon Dioxide 24.7 mmol/L (20-30); Chloride 105 mmol/L (98-107); Cholesterol 156 mg/dL (< 200); Glucose 116 mg/dL (74-106); HDL Cholesterol 67 mg/dL (40-59); LDL Cholesterol 76 mg/dL (< 100); Potassium 4.5 mmol/L (3.5-5.1); Sodium 139 mmol/L (136-145); Total Protein 7.4 g/dL (5.7-8.2); Triglycerides 64 mg/dL (< 150)
== END | disposition home or self-care (01) ==
LOC: LAB 07:25
PROVIDERS: ATTEND Internal Medicine
DX: E11.8 Type 2 diabetes mellitus with unspecified complications (principal)
CPT/HCPCS: 36415; 80053; 80061

== ENCOUNTER 2023-01-15 13:01 | Emergency (ER) | payer MEDICAID ==
[~2023-01-15] VITALS: Ht 165.1 cm; Wt 107.0 kg
[2023-01-15 14:10] LABS: Basophils # (auto) 0.1 10 ^3/uL (0-0.2); Basophils % (auto) 1.4 % (0.0-2.0); Eosinophils # (auto) 0.2 10 ^3/uL (0-0.8); Hematocrit 42.9 % (36.0-46.0); Hemoglobin 14.1 g/dL (12.2-16.2); Lymphocytes # (auto) 1.7 10 ^3/uL (0.4-5.4); Lymphocytes % (auto) 23.3 % (10.0-50.0); Mean Corpuscular Hemoglobin 31.7 pg (28.0-32.0); Mean Corpuscular Hgb Conc. 32.9 g/dL (32.0-36.0); Mean Corpuscular Volume 96.5 fL (80.0-100.0); Monocytes # (auto) 0.6 10 ^3/uL (0-1.3); Monocytes % (auto) 8.3 % (0.0-12.0); Neutrophils # (auto) 4.6 10 ^3/uL (1.6-8.6); Nucleated Red Blood Cells % 0.1 %; Red Blood Cells 4.45 10^6/uL (4.0-5.20); Red Cell Distribution Width 17.7 % (11.8-14.3); White Blood Cell 7.1 10^3/uL (4.4-10.8)
[2023-01-15 14:54] LABS: Alanine Aminotransferase 66 U/L (7-40); Albumin 4.6 g/dL (3.2-4.8); Alkaline Phosphatase 99 U/L (46-116); Anion Gap 7 (5-15); Aspartate Aminotransferase 63 U/L (13-40); BUN/Creatinine Ratio 20.2 (10.0-20.0); Bilirubin, Total 0.3 mg/dL (0.2-1.0); Blood Urea Nitrogen 18 mg/dL (9-23); Calcium 9.3 mg/dL (8.5-10.1); Carbon Dioxide 26 mmol/L (20-30); Chloride 108 mmol/L (98-107); Glucose 160 mg/dL (74-106); Potassium 4.2 mmol/L (3.5-5.1); Sodium 141 mmol/L (136-145)
[2023-01-15 15:06] LABS: Magnesium 1.8 mg/dL (1.6-2.6)
[2023-01-15 17:27] LABS: INR 1.22 (0.9-1.15); Prothrombin Time 12.7 sec (9.3-11.8)
[2023-01-15 20:18] LABS: INR 3.2 (0.9-1.15)
[2023-01-15 20:19] LABS: Partial Thromboplastin Time 109.3 SEC (24.5-34.5)
[2023-01-15 21:04] VITALS: BP 131/88; PULSE 89; RESP 18; TEMP 97.8; O2SAT 95
== END 2023-01-15 21:08 | disposition home or self-care (01) ==
LOC: ER 13:01
DX: S00.03XA Contusion of scalp, initial encounter (principal); E11.22 Type 2 diabetes mellitus with diabetic chronic kidney disease; N18.9 Chronic kidney disease, unspecified; Z98.890 Other specified postprocedural states; Z79.899 Other long term (current) drug therapy; W22.8XXA Striking against or struck by other objects, initial encounter; Y93.89 Activity, other specified; Y92.89 Other specified places as the place of occurrence of the external cause; Y99.8 Other external cause status
CPT/HCPCS: 36415; 70450; 80053; 83735; 85025; 85610; 85730

== ENCOUNTER 2023-01-18 10:33 | Emergency (ER) | payer MEDICAID ==
[~2023-01-18] VITALS: Ht 165.1 cm; Wt 106.9 kg
[2023-01-18 11:22] LABS: Basophils # (auto) 0.1 10 ^3/uL (0-0.2); Basophils % (auto) 0.7 % (0.0-2.0); Eosinophils # (auto) 0.1 10 ^3/uL (0-0.8); Eosinophils % (auto) 1.9 % (0.0-7.0); Hematocrit 42.8 % (36.0-46.0); Hemoglobin 13.9 g/dL (12.2-16.2); Lymphocytes % (auto) 25.8 % (10.0-50.0); Mean Corpuscular Hemoglobin 31.9 pg (28.0-32.0); Mean Corpuscular Hgb Conc. 32.5 g/dL (32.0-36.0); Mean Corpuscular Volume 98.3 fL (80.0-100.0); Monocytes # (auto) 0.7 10 ^3/uL (0-1.3); Monocytes % (auto) 8.6 % (0.0-12.0); Neutrophils # (auto) 4.8 10 ^3/uL (1.6-8.6); Nucleated Red Blood Cells % 0.1 %; Red Blood Cells 4.36 10^6/uL (4.0-5.20); Red Cell Distribution Width 17.7 % (11.8-14.3); White Blood Cell 7.6 10^3/uL (4.4-10.8)
[2023-01-18 11:28] LABS: Alanine Aminotransferase 46 U/L (7-40); Albumin 4.4 g/dL (3.2-4.8); Alkaline Phosphatase 93 U/L (46-116); Anion Gap 7 (5-15); Aspartate Aminotransferase 30 U/L (13-40); BUN/Creatinine Ratio 11.9 (10.0-20.0); Blood Urea Nitrogen 8 mg/dL (9-23); Calcium 9.1 mg/dL (8.5-10.1); Carbon Dioxide 20 mmol/L (20-30); Chloride 110 mmol/L (98-107); Glucose 156 mg/dL (74-106); Potassium 4.2 mmol/L (3.5-5.1); Sodium 137 mmol/L (136-145)
[2023-01-18 11:29] LABS: Bilirubin, Total 0.7 mg/dL (0.2-1.0); Total Protein 7.1 g/dL (5.7-8.2)
[2023-01-18 19:40] VITALS: O2SAT 98
[2023-01-18 20:26] LABS: INR > 8.0 (0.9-1.15)
[2023-01-18] MEDS ORDERED: ACETAMINOPHEN 325 MG TAB PO ONE (21:00)
[2023-01-18 21:27] LABS: Urine Bacteria FEW /hpf (None Seen); Urine Blood 3+ /uL (Negative); Urine Clarity Clear (Clear); Urine Color Colorless (Yellow); Urine Protein, UAD Negative (Negative); Urine Specific Gravity 1.004 (1.001-1.035); Urine Urobilinogen Normal (Negative); Urine WBC 2 /hpf (0 - 5)
[2023-01-18 22:01] LABS: INR > 8.0 (0.9-1.15)
[2023-01-18] MEDS ORDERED: diphenhdrAMINE HCL 25 MG CAP PO STA (22:33)
[2023-01-19] MEDS ORDERED: levETIRAcetam 500 MG/5ML INJ IV ONE (01:38)
[2023-01-19] MEDS ORDERED: levETIRAcetam 1000 mg/100ml 100 ML IV ONE (01:45)
[2023-01-19] MEDS ORDERED: PHYTONADIONE (VIT K)10 MG/ML 1ML VIAL SUBCUT ONE (01:45)
[2023-01-19 02:00] VITALS: BP 137/84; PULSE 72; RESP 12; TEMP 98.2; O2SAT 97
== END 2023-01-19 02:13 | disposition short-term general hospital (02) ==
LOC: ER 10:33
DX: H11.32 Conjunctival hemorrhage, left eye (principal); D68.9 Coagulation defect, unspecified; E11.22 Type 2 diabetes mellitus with diabetic chronic kidney disease; N18.9 Chronic kidney disease, unspecified; Z90.49 Acquired absence of other specified parts of digestive tract; Z79.899 Other long term (current) drug therapy
CPT/HCPCS: 36415; 70450; 71045; 80053; 80320; 81001; 85025; 85610; 85730; 86850; 86900; 86901; 93005; 96365; 96372; 99285; J1953; J3430

== ENCOUNTER → 2023-03-11 | Outpatient (CLI) | payer MEDICAID ==
[2023-03-11 10:06] LABS: Alanine Aminotransferase 26 U/L (7-40); Albumin 4.5 g/dL (3.2-4.8); Alkaline Phosphatase 88 U/L (46-116); Anion Gap 7 (5-15); Aspartate Aminotransferase 17 U/L (13-40); BUN/Creatinine Ratio 12.9 (10.0-20.0); Bilirubin, Total 0.7 mg/dL (0.2-1.0); Blood Urea Nitrogen 12 mg/dL (9-23); Calcium 9.6 mg/dL (8.5-10.1); Carbon Dioxide 28 mmol/L (20-30); Chloride 107 mmol/L (98-107); Cholesterol 192 mg/dL (< 200); Glucose 145 mg/dL (74-106); HDL Cholesterol 58 mg/dL (40-59); LDL Cholesterol 126 mg/dL (< 100); Potassium 4.2 mmol/L (3.5-5.1); Sodium 142 mmol/L (136-145); Triglycerides 87 mg/dL (< 150)
== END | disposition home or self-care (01) ==
LOC: LAB 09:21
PROVIDERS: ATTEND Internal Medicine
DX: E11.9 Type 2 diabetes mellitus without complications (principal)
CPT/HCPCS: 36415; 80053; 80061; 83036

== ENCOUNTER 2023-03-12 15:54 | Emergency (ER) | payer MEDICAID ==
[~2023-03-12] VITALS: Ht 165.1 cm; Wt 108.4 kg
[2023-03-12 17:00] LABS: Basophils # (auto) 0.1 10 ^3/uL (0-0.2); Eosinophils # (auto) 0.2 10 ^3/uL (0-0.8); Eosinophils % (auto) 2.3 % (0.0-7.0); Hematocrit 42.3 % (36.0-46.0); Lymphocytes # (auto) 2.3 10 ^3/uL (0.4-5.4); Mean Corpuscular Hemoglobin 32.7 pg (28.0-32.0); Mean Corpuscular Hgb Conc. 33.1 g/dL (32.0-36.0); Mean Corpuscular Volume 98.9 fL (80.0-100.0); Monocytes # (auto) 0.6 10 ^3/uL (0-1.3); Monocytes % (auto) 7.8 % (0.0-12.0); Neutrophils # (auto) 4.2 10 ^3/uL (1.6-8.6); Neutrophils % (auto) 57.9 % (37.0-80.0); Nucleated Red Blood Cells % 0.2 %; Red Blood Cells 4.28 10^6/uL (4.0-5.20); Red Cell Distribution Width 14.3 % (11.8-14.3); White Blood Cell 7.3 10^3/uL (4.4-10.8)
[2023-03-12 17:19] LABS: Alanine Aminotransferase 22 U/L (7-40); Albumin 4.5 g/dL (3.2-4.8); Alkaline Phosphatase 88 U/L (46-116); Anion Gap 6 (5-15); Aspartate Aminotransferase 16 U/L (13-40); BUN/Creatinine Ratio 10.2 (10.0-20.0); Blood Urea Nitrogen 12 mg/dL (9-23); Calcium 9.1 mg/dL (8.7-10.4); Carbon Dioxide 28 mmol/L (20-30); Chloride 106 mmol/L (98-107); Glucose 126 mg/dL (74-106); Potassium 3.7 mmol/L (3.5-5.1); Sodium 140 mmol/L (136-145)
[2023-03-12 17:20] LABS: Bilirubin, Total 0.5 mg/dL (0.2-1.0); Total Protein 7.3 g/dL (5.7-8.2)
[2023-03-12 17:58] LABS: INR 0.96 (0.9-1.15); Partial Thromboplastin Time 24.1 SEC (24.5-34.5); Prothrombin Time 10.3 sec (9.3-11.8)
[2023-03-12 22:03] VITALS: BP 122/80; PULSE 85; RESP 20; TEMP 98.4; O2SAT 99
== END 2023-03-12 22:08 | disposition home or self-care (01) ==
LOC: ER 15:54
DX: M79.652 Pain in left thigh (principal); M79.651 Pain in right thigh; D68.61 Antiphospholipid syndrome; R51.9 Headache, unspecified; E11.22 Type 2 diabetes mellitus with diabetic chronic kidney disease; N18.9 Chronic kidney disease, unspecified; E78.5 Hyperlipidemia, unspecified; Z90.49 Acquired absence of other specified parts of digestive tract; Z79.01 Long term (current) use of anticoagulants; Z79.899 Other long term (current) drug therapy
CPT/HCPCS: 36415; 70450; 80053; 85025; 85610; 85730; 93970

== ENCOUNTER → 2023-04-21 | Outpatient (CLI) | payer MEDICAID ==
[2023-04-21 14:41] LABS: Chloride 107 mmol/L (98-107); Potassium 4.3 mmol/L (3.5-5.1); Sodium 140 mmol/L (136-145)
[2023-04-21 14:42] LABS: Anion Gap 7 (5-15); Carbon Dioxide 26 mmol/L (20-30)
[2023-04-21 14:43] LABS: Calcium 9.6 mg/dL (8.5-10.1)
[2023-04-21 14:47] LABS: BUN/Creatinine Ratio 12.6 (10.0-20.0); Blood Urea Nitrogen 13 mg/dL (9-23); Glucose 105 mg/dL (74-106)
[2023-04-21 16:02] LABS: Creatinine, Urine 139.78 mg/dL (30.0-125.0)
== END | disposition home or self-care (01) ==
LOC: LAB 13:44
PROVIDERS: ATTEND Internal Medicine
DX: D68.61 Antiphospholipid syndrome (principal); I26.90 Septic pulmonary embolism without acute cor pulmonale
CPT/HCPCS: 36415; 80048; 82043; 82570